=== PATIENT | male | born 1995 | race Caucasian/White ===

== ENCOUNTER 2020-04-01 14:10 | Emergency (ER) | payer SELFPAY ==
[~2020-04-01] VITALS: Ht 175.3 cm; Wt 83.9 kg
[2020-04-01 14:13] VITALS: BP 141/71
[2020-04-01] MEDS ORDERED: DIPH,PERTUSS(ACELL),TET VAC/PF 0.5 ML IM-VACC ONE ×2 (14:18→14:30)
--- NOTE | 2020-04-01 14:18 | NUR ---
PT HERE FOR TDAP FOR IMMUNIZATION RECORDS.
--- NOTE | 2020-04-01 14:26 | NUR ---
Patient/Caregiver given discharge instructions and they have confirmed that they understand the instructions. Patient ambulatory with steady gait.
--- NOTE | 2020-04-01 14:29 | NUR ---
task RN note: pt seen by KEYSHA Willis pt seeking tdap vaccine for school as university will not allow him to enroll without proof of UTD tdap. pt states last tdap was over 10 years ago. tdap vaccine ordered and admin per emar. pt tolerated well. awaiting dc paperwork from provider at this time.
== END 2020-04-01 14:47 | disposition home or self-care (01) ==
LOC: ED 14:41
DX: Z23 Encounter for immunization (principal)
CPT/HCPCS: 90471; 90715; 99283